=== PATIENT | male | born 1990 | race Two or more races ===

== ENCOUNTER 2024-10-14 18:57 | Emergency (ER) | payer SELFPAY ==
[~2024-10-14] VITALS: Ht 167.6 cm; Wt 68.0 kg
[2024-10-14 19:21] VITALS: BP 114/64; TEMP 98.1; O2SAT 98
[2024-10-14] MEDS ORDERED: LIDOCAINE HCL/MPF 1% 30 ML VIAL IJ ONE (19:30)
[2024-10-14] MEDS ORDERED: TDAP [DIPH/PERTUSSIS/TET] 0.5 ML VIAL IM ONE (19:56)
[2024-10-14] MEDS: TDAP [DIPH/PERTUSSIS/TET] 0.5 ML VIAL IM ONE (20:01)
== END 2024-10-14 20:07 | disposition home or self-care (01) ==
LOC: ER 19:04
DX: S61.012A Laceration without foreign body of left thumb without damage to nail, initial encounter (principal); W26.0XXA Contact with knife, initial encounter; Y93.G3 Activity, cooking and baking; Y92.090 Kitchen in other non-institutional residence as the place of occurrence of the external cause; Y99.8 Other external cause status
CPT/HCPCS: 12001; 90471; 90715; 99283; J3490